=== PATIENT | male | born 1965 | race Caucasian/White ===

== ENCOUNTER 2016-05-04 09:38 | Emergency (ER) | payer SELFPAY ==
[~2016-05-04] VITALS: Ht 188 cm; Wt 93.5 kg
[2016-05-04 09:39] VITALS: BP 144/84; PULSE 76; RESP 20; TEMP 97.5; O2SAT 97
[2016-05-04] MEDS ORDERED: KETOROLAC TROMETHAMINE 60 MG/2 ML (IM) VIAL IM ONE (10:15)
--- NOTE | 2016-05-04 10:57 | PD ---
HPI Chief Complaint: Back/ Neck Pain or Injury Time Seen by Provider: 10:05 Travel History International Travel<30 days: No Contact w/Intl Traveler<30days: No Traveled to known affect area: No History of Present Illness HPI 51-year-old male came to the emergency room with history of lower back pain. Patient says he has had this low back pain for a while now. He has been going to chiropractor. He got an x-ray done at the chiropractor and was told that everything looked okay. He was recommended an MRI. Patient does not have a primary care doctor. Meanwhile he says for the past day or so his left leg has been getting numb. [employer]. 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 He has been feeling some tingling down the left side of his leg. He is otherwise a healthy person. He is a smoker. He is not an IV drug abuser. No fever or chills or history of trauma. [facility] Past Medical History Narrative Medical List of his past medical, surgical, social and family history was reviewed from the nursing note. Musculoskeletal: Yes (back pain months ) Social History Alcohol Use: Yes Tobacco Use: Yes (<pack day) Substance Use: No Allergies-Medications (Allergen,Severity, Reaction): Coded Allergies: No Known Allergies (Unverified , 05/04/16) Comments No known drug allergies. Reported Meds & Prescriptions Reported Meds & Active Scripts Active Medrol Dosepak (Methylprednisolone) 4 Mg Dspk 4 Mg PO DIRECTED Per Pharmacist direction Flexeril (Cyclobenzaprine HCl) 5 Mg Tab 5 Mg PO TID Ibuprofen 800 Mg Tab 800 Mg PO Q8H PRN Hydrocodone-Acetaminophen 5-325 mg Tab 1 Tab PO Q6H PRN Narrative Medication List of his home medications reviewed from the nursing note. Review of Systems Except as stated in HPI: all other systems reviewed are Neg Physical Exam Narrative GENERAL: Awake, alert, no obvious distress SKIN: Warm and dry. HEAD: Atraumatic. Normocephalic. EYES: Pupils equal and round. No scleral icterus. No injection or drainage. ENT: No nasal bleeding or discharge. Mucous membranes pink and moist. NECK: Trachea midline. No JVD. CARDIOVASCULAR: Regular rate and rhythm. RESPIRATORY: No accessory muscle use. Clear to auscultation. Breath sounds equal bilaterally. GASTROINTESTINAL: Abdomen soft, non-tender, nondistended. Hepatic and splenic margins not palpable. MUSCULOSKELETAL: Extremities without clubbing, cyanosis, or edema. No obvious deformities. NEUROLOGICAL: Awake and alert. No obvious cranial nerve deficits. Motor grossly within normal limits. Five out of 5 muscle strength in the arms and legs. Normal speech. PSYCHIATRIC: Appropriate mood and affect; insight and judgment normal. Data Data Last Documented VS Vital Signs Date Time Temp Pulse Resp B/P Pulse Ox O2 Delivery O2 Flow Rate FiO2 05/04/16 09:39 97.5 76 20 144/84 97 Room Air Orders Ketorolac Inj (Toradol Inj) (05/04/16 10:15) [facility] Medical Decision Making Medical Screen Exam Complete: Yes Emergency Medical Condition: Yes Medical Record Reviewed: Yes Differential Diagnosis Lumbar radiculopathy Narrative Course 11:12 AM patient did not want any narcotic medication. He said he had to drive back home and did not have anybody to come and pick him up. I gave him IM Toradol only. I reassessed him after about an hour and he is ambulating without a slight limp but says he feels little better. He will be discharged home on prescriptions for steroid, anti-inflammatory, pain medication and muscle relaxant. I recommended to him that he should stay off lifting heavy objects for another 4-5 days. Also I will give him a follow-up with the neurosurgeon who is on-call for us today. I have recommended that the MRI should be done as an outpatient preferably ordered by the neurosurgeon since there is no emergency to get the MRI done here in the emergency room today. Patient understands and he is agreeable to this. Procedures EKG Prior to Arrival: No Diagnosis Primary Impression: Lumbar radiculopathy Referrals: Reid Gray MD 1 week Additional Instructions: Please return to the ER if the condition worsens or any other new concerns. Do not lift any heavy object more than 5 pounds for the next at least 5 days. Give Restoril your back. Take the medications as per the prescription direction. Do not drive or operate heavy machinery while taking the muscle relaxant or the pain medication since they will make you groggy. Follow-up with the neurosurgeon whose name and number been given to you in the discharge paperwork. Call to make an appointment. Drink lots of fluid wide on ibuprofen. Do not take medications empty stomach Med/Other Pt SpecificInfo: Prescription(s) given Scripts Methylprednisolone Dosepak (Medrol Dosepak)4 Mg Dspk4 Mg PO DIRECTED #1 DSPK Ref 0 Per Pharmacist direction Prov:Bee Ramirez MD 05/04/16 Cyclobenzaprine (Flexeril)5 Mg Tab5 Mg PO TID #15 TAB Ref 0 Prov:Bee Ramirez MD 05/04/16 Ibuprofen 800 Mg [id number] Mg PO Q8H PRN (Pain/Inflammation) #60 TAB Ref 0 Prov:Bee Ramirez MD 05/04/16 Hydrocodone-Acetaminophen 5-325 mg Tab1 Tab PO Q6H PRN (PAIN) #15 TAB Ref 0 Prov:Bee Ramirez MD 05/04/16 Disposition: 01 DISCHARGE HOME Condition: Stable Bee Ramirez MD May 04, 2016 10:57
[2016-05-04] MEDS ORDERED: MEDR4PAK PO (11:16)
[2016-05-04] MEDS ORDERED: CYCL5TAB PO (11:16)
[2016-05-04] MEDS ORDERED: IBUP800T23 PO (11:16)
[2016-05-04] MEDS ORDERED: HYDR-3516 PO (11:16)
== END 2016-05-04 12:22 | disposition home or self-care (01) ==
LOC: NEPA 09:38
DX: M54.16 Radiculopathy, lumbar region (principal); F17.210 Nicotine dependence, cigarettes, uncomplicated
CPT/HCPCS: 96372; 99283; J1885